=== PATIENT | female | born 1960 | race Caucasian/White ===

== ENCOUNTER 2018-04-30 14:46 | Emergency (ER) | payer OTHER ==
[2018-04-30] MEDS: DIPHENHYDRAMINE 25 MG CAP PO (16:14)
== END 2018-04-30 17:29 | disposition home or self-care (01) ==
LOC: FTE 14:46
DX: R21 Rash and other nonspecific skin eruption (principal); L53.9 Erythematous condition, unspecified; I10 Essential (primary) hypertension
CPT/HCPCS: 99283; Z7502